=== PATIENT | male | born 1950 | race Caucasian/White ===

== ENCOUNTER 2023-07-12 06:42 | Observation (INO) | payer MEDICARE, SELFPAY ==
[2023-07-12] VITALS (59 sets, daily range): BP systolic 109–188; BP diastolic 64–123; PULSE 63–92; RESP 11–24; TEMP 35.9–36.8; O2SAT 94–99
--- NOTE | 2023-07-12 06:45 | RT.EKG_ITS ---
APPROVED REPORT Exam: Resting ECG Reason for Exam: STROKE Patient Location: E HR:73 bpm ECG Measurements Heart Rate 73 AXIS FL [id number] P [id number] QRSd 113 QRS 49 QT 405 T 85 QTc 446 Conclusion sinus rhythm V-rate 60- 78, limited interp 2/t artifact
--- NOTE | 2023-07-12 07:00 | DI.CT_ITS ---
Exam(s) CT BRAIN NECK CTA EXAM: CT BRAIN NECK CTA CLINICAL HISTORY: R sided weakness. TECHNIQUE: Imaging Protocol: Axial CT angiography was performed with multi-slice acquisition and mu lti-planar and/or 3D reconstructions. CONTRAST MATERIAL: Intravenous: Omnipaque 350 COMPARISON: No exams were available for comparison FINDINGS: CT Head W/O and W: Ventricles and Extra axial spaces: Normal in size and morphology for the patient's age. Hemorrhage: None. Cerebral parenchyma: There are areas of decreased attenuation in the white matter consistent with sma ll vessel ischemic disease. No mass effect or midline shift. Midline shift: None. Brainstem/Cerebellum: Normal. Calvarium: Normal. Visualized Paranasal sinuses/Mastoids: Clear. Soft Tissues: Unremarkable. Enhancement: Unremarkable. CTA Neck W: Common Carotid: Right: No dissection, occlusion or significant stenosis. Left: No dissection, occlusion or significant stenosis. External Carotid: Right: No occlusion or significant stenosis. Left: No occlusion or significant stenosis. Internal Carotid: Right: No dissection, occlusion or significant stenosis. Left: No dissection, occlusion or significant stenosis. Vertebral Artery: Right: No dissection, occlusion or significant stenosis. Left: No dissection, occlusion or significant stenosis. Lung Apices: Normal. Bones: Within normal limits for the patient's age. Soft Tissues: Normal. Thyroid gland: Unremarkable. CTA Brain W: Internal Carotid Arteries: There is atherosclerosis present. No aneurysm or occlusion. There is les s than 50 percent stenosis of the internal carotid arteries bilaterally. Anterior Cerebral Arteries: Right: No aneurysm, occlusion or significant stenosis. Left: No aneurysm, occlusion or significant stenosis. Middle Cerebral Arteries: Right: No aneurysm, occlusion or significant stenosis. Left: No aneurysm, occlusion or significant stenosis. Posterior Cerebral Arteries: Right: No aneurysm, occlusion or significant stenosis. Left: No aneurysm, occlusion or significant stenosis. Vertebral Arteries: Right: No aneurysm or occlusion. There is atherosclerosis causing 50-69 percent stenosis of the dis chasidy V4 segment. Left: No aneurysm or occlusion. There is moderate (50-69 percent) stenosis of the distal V4 segment of the left vertebral artery. Basilar Artery: No aneurysm, occlusion or significant stenosis. IMPRESSION: 1. No large vessel occlusion or aneurysm. 2. 50-69 percent stenosis secondary to atherosclerosis in the distal V4 segments of both the right an d left vertebral arteries. 3. No acute intracranial process. 4. No occlusion or significant stenosis on the CT angiography of the neck. RADIATION DOSE DELIVERED: Total DLP DATA REPOSITORY: All CT scans at this facility are submitted to the National Radiology Data Registry (NRDR) Dose Index Registry (DIR) with the [employer] (ACR). RADIATION OPTIMIZATION: All CT scans at this facility use at least one of these dose optimization te chniques: automated exposure control; mA and/or kV adjustment per patient size (includes targeted exa ms where dose is matched to clinical indication); or iterative reconstruction.
--- NOTE | 2023-07-12 07:00 | DI.RAD_ITS ---
Exam(s) XR CHEST 2V PA LATERAL EXAM: XR CHEST 2V PA LATERAL CLINICAL HISTORY: R sided weakness TECHNIQUE: 2D digital imaging was performed of the chest. Two images were obtained. PA and lateral views were obtained. COMPARISON: No exams were available for comparison FINDINGS: MEDIASTINUM: Normal. HEART: Normal. PULMONARY VASCULATURE: Normal. LUNGS: Clear. PLEURAL SPACE: No pleural effusion or pneumothorax. BONE:Within normal limits for the patient's age. OTHER FINDINGS:Normal. IMPRESSION: No acute pulmonary findings. DATA REPOSITORY: RADIATION DOSE DELIVERED:
--- NOTE | 2023-07-12 07:14 | ED.GENADUL_ITS ---
Discharge Plan Disposition Patient Disposition: Admit to [facility] Discharge Details Clinical Impression: Brain TIA Admit Date/Time: 07/12/23 11:13 Admit Provider: Armando Ramon Attending Provider: Armando Ramon Primary Care Provider: Katarina Angelo V ED Provider: Eielen Berrios Medical Decision Making The patient states that he gives blood every 2 months. His blood pressure used to be 120 but more recently it has been 140/80. [facility]. His initial blood pressure on arrival this morning was 188/107; I asked for this to be repeated and it was 144/97. The patient was en route to CT when he was signed out by codie SHARMA. There was a problem injecting him in radiology and they had to repeat this. He has no history of renal disease. His prostate CA was [address] results still not back. I have already called radiology to make sure this was put through as a stroke protocol and should be read stat. 0850 Radiology called again for results. 0850 Unix Architect Mary [place] [facility] [place] [facility] [place] Stroke neuro to call me back. Pt. got up at 0500 but went to get paper around 0530. 1000 The patient and his have been updated on his test results and treatment plan. I did speak to Dr. Kaye from stroke neurology at [facility] some time ago. The patient has no LVO and no acute stroke evident on CT and CTA. Because his balance was off at 5 AM when he awoke, his symptoms likely began while he was sleeping. He did go to bed at 8 PM last night. He is not a candidate for thrombolytics. At this time the patient is able to lift his right leg much better. This may be a TIA and we discussed this. Stroke neurology recommended echo, MRI, aspirin and usual stroke workup. We are waiting to hear back from [facility] regarding whether the patient could be admitted here, which he prefers. 1039 Stormy, nursing wrecking supervisor from the [facility], says it is fine to admit the patient here. 1100 Pt. sleeping so not updated. Dr. Brownlee reviewed the chart and is admitting the patient to telemetry. Medical Records Medical records reviewed: Yes I reviewed the patient's medical records. Imaging Data Radiologic Study: Imaging: X-Ray (R hip: NAD) and CT Scan (CT and CTA brain: no LVP and no stroke seen. Patient does have moderate 50 to 69% stenosis of the distal V4 segments of his left and right vertebral arteries.) Lab Data Lab results reviewed: Yes I reviewed the patient's lab results. Lab results narrative: Patient CBC, Chem-20, INR, and Trop are essentially unremarkable. Glucose was 112 and chloride 108. ECG Data Attestation: I personally reviewed and interpreted this ECG (s) as follows: (NSR 75, artifact) HPI General Date/Time Provider Initiated Documentation: 07/12/23 06:50 . HPI Narrative: Pt. initially seen by codie SHARMA on arrival before 0700; s/o as awoke with sxs. Interviewed and examined by me on return from CT. This 73-year-old male patient presents with a chief complaint of right lower extremity weakness. Patient states he got up at 5 AM this morning and got dressed. He states he was aware of being off balance at that time. He typically holds onto things when he walks and this was no different. He was able to get his coffee and then proceeded to walk down to the mailbox to get his newspaper. He states about skilled nursing down to the mailbox his right leg gave out and he fell. He said he did catch himself and did not hit his head. He was able to get back up again. This happened again at the mailbox and he was unable to get back up again. He started to crawl on his hands and knees and thought he would flag someone down driving by. His came looking for him because he been gone for a while. She was able to help him up and they then walked back up to the house. Patient has no other focal neurologic deficits. He has no back pain. There is no bowel or bladder dysfunction. He has no chest pain, difficulty breathing, or abdominal pain. He has no fever or URI symptoms. There is no dysuria. He tells me that his groin feels sore. He is able to lift his left lower extremity off the mattress but cannot maintain this. He is unable to hold it up against pressure. There is no numbness. Related Data Home Medications Medication Instructions Recorded Confirmed bisacodyl 5 mg tablet,delayed 5 mg PO DIRECTED 10/07/16 07/12/23 release polyethylene glycol 3350 17 527 gm PO DIRECTED 10/07/16 07/12/23 gram/dose oral powder multivitamin .ROUTE 07/12/23 vitamin D13-hkzen acid PO 07/12/23 Allergies Allergy/AdvReac Type Severity Reaction Status Date / Time No Known Allergies Allergy Unverified 07/12/23 10:07 General Stated Complaint: CVA/TIA LIZETH: 2 Review of Systems Constitutional Constitutional: Denies chills, Denies fever(s), Denies headache(s) and Denies weakness Eyes Eyes: Denies diplopia and Reports other (no redness) ENT Ears, Nose, Mouth, and Throat: Denies otalgia, Denies headache(s), Denies nasal congestion, Denies nasal discharge, Denies neck pain and Denies sore throat Cardiovascular Cardiovascular: Denies chest pain, Denies palpitations and Denies dyspnea Respiratory Respiratory: Denies cough and Denies dyspnea Gastrointestinal Gastrointestinal: Denies abdominal pain, Denies diarrhea, Denies nausea and Denies vomiting Genitourinary Genitourinary: Denies difficulty urinating and Denies dysuria Musculoskeletal Musculoskeletal: Denies myalgias, Reports muscle weakness (RLE), Denies neck pain, Denies numbness and Reports other (edema) Integumentary/Breasts Skin/Breast: Denies change in pigmentation, Denies rash and Reports other (Has knee abrasions from crawling) Neurologic Neurologic: Denies headache(s), Denies numbness and Denies weakness Endocrine Endocrine: Denies palpitations PFSH All Active Problems Brain TIA (Acute) Medical History ganglion 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 Hyperlipidemia Degenerative joint disease of hand right HX OF TUBULAR ADENOMA Surgical History Tonsillectomy Rotator Cuff Repair LEFT Colonoscopy - IV Sedation (10/07/16) Colonoscopy - IV Sedation (02/26/10) Appendectomy Family History Mother Heart disease Father Heart disease Brother , METASTATIC CA Personal history of malignant neoplasm RECTAL Uncle Personal history of malignant neoplasm COLON Uncle Personal history of malignant neoplasm COLON Social History Smoking/Tobacco Use Status: Current-Occasional Tobacco Type: cigars Smoking risk assessment performed?: Yes Drug use: Never Substance use type: does not use Housing: house Exam Const General: no acute distress, well developed, well groomed and not in acute distress Nutritional Appearance: well nourished Orientation: alert and oriented x3 HENMT Head: normocephalic and atraumatic Ears: external ears normal Mouth: oropharynx normal and moist mucous membranes Throat: posterior oropharynx normal Eyes Conjunctivae: conjunctivae normal Neck Neck: full ROM and supple Chest Chest: normal inspection of the chest Resp Effort & Inspection: normal respiratory effort Auscultation: clear to auscultation bilaterally Cardio Rate: regular rate Rhythm: regular rhythm Heart Sounds: no murmurs and no rubs GI Inspection: normal to inspection Palpation: soft, nontender and other (non distended) Auscultation: normal bowel sounds Skin General skin exam: no rashes or lesions noted and other (pink, warm, dry) Neuro General: patient alert, patient awake and patient oriented x3 Speech: speech normal Motor: other (GOMEZ) Sensory Exam: no sensory deficits noted Extrem General: normal to inspection, full ROM and pedal edema present Right upper extremity: normal to inspection and full ROM Left upper extremity: normal to inspection and full ROM Right lower extremity: full ROM (has weakness RLE, unable to hold up >5 sec or vs pressure f/me), normal capillary refill and knee (knee abrasion; NTP) Left lower extremity: full ROM, normal capillary refill and knee (knee abrasion; NTP) Psych Mental Status: mental status grossly normal Speech and Movement: speech and movement normal Affect: normal affect Course Vital Signs Vital signs: Vital Signs Temperature 36.2 C L 07/12/23 06:49 Pulse 76 07/12/23 06:49 Respiratory Rate 16 07/12/23 06:49 Blood Pressure 188/107 H 07/12/23 06:49 Temperature 36.2 C L 07/12/23 06:49 Pulse 76 07/12/23 06:49 Respiratory Rate 16 07/12/23 06:49 Respiratory Effort Normal 07/12/23 06:57 Blood Pressure 188/107 H 07/12/23 06:49 Blood Pressure Position Supine 07/12/23 06:49 Oxygen Delivery Method Room Air 07/12/23 06:49 Oxygen Flow Rate 0 07/12/23 06:49 Pain Level 0 07/12/23 06:49
[2023-07-12 07:25] LABS: Abs Immature Grans 0.01 10^3/uL (0.0-0.06); Absolute Basophil Count 0.04 10^3/uL (0.0-0.2); Absolute Eosinophil Count 0.08 10^3/uL (0.0-0.7); Absolute Monocyte Count 0.57 10^3/uL (0.1-0.8); Absolute Neutrophil Count 2.89 10^3/uL (1.2-6.7); Basophils % 0.9; Eosinophils % 1.7; HGB 14.7 g/dL (13.5-17.5); Immature Grans % 0.2; Lymphocytes % 23.5; MCH 29.6 pg (27.0-33.0); MCHC 32.7 % (32.0-36.0); MCV 91 fL (80-95); Monocytes % 12.2; Neutrophils % 61.5; Platelet Count 187 10^3/uL (130-400); RBC 4.97 10^6/uL (4.36-5.78); RDW 13.2 % (11.8-14.1); RDW-SD 43.9 fL; WBC 4.69 10^3/uL (4.4-10.8)
[2023-07-12 07:34] LABS: Prothrombin Time 10.1 sec (9.1-11.1)
[2023-07-12 07:46] LABS: ALT 18 U/L (16-63); AST 18 U/L (15-37); Albumin 3.5 g/dL (3.4-5.0); Alkaline Phosphatase 65 U/L (46-116); Anion Gap 5.4 mmol/L (3-11); BUN 16 mg/dL (7-18); Bilirubin, Total 0.5 mg/dL (0.2-1.0); CO2 27.6 mmol/L (21.0-32.0); Calcium 8.6 mg/dL (8.5-10.1); Chloride 108 mmol/L (98-107); Estimated GFR 78.49 (mL/min/1.73m2); Glucose 112 mg/dL (74-106); Magnesium 1.9 mg/dL (1.8-2.4); Sodium 141 mmol/L (136-145); Total Protein 7.3 g/dL (6.4-8.2); Troponin I < 50 ng/L (<or=60)
[2023-07-12] MEDS: Normal Saline 1,000 ML 1000 ML IV (07:50)
[2023-07-12] MEDS: Omnipaque 350 MG/ML 100 ML BTL 160 ML IJ (07:54)
--- NOTE | 2023-07-12 08:00 | DI.RAD_ITS ---
Exam(s) XR HIP RT COMPLETE AP PELVIS EXAM: XR HIP RT COMPLETE AP PELVIS CLINICAL HISTORY: pain post fall. TECHNIQUE: 2D digital imaging was performed of the right hip. Three images were obtained. AP pelvis and lateral right hip views were obtained. COMPARISON: No exams were available for comparison FINDINGS: BONES: No acute fracture is present. No bony destructive lesion is seen. JOINTS: No dislocation present. SOFT TISSUE: Normal. There is contrast seen in the urinary bladder from the patient's CT scan perform ed the same day. IMPRESSION: No acute fracture or dislocation. DATA REPOSITORY: RADIATION DOSE DELIVERED:
--- NOTE | 2023-07-12 08:06 | NUR.NOTE ---
During DI malfunction with CT timing after contrast was pushed and the imaging performed. Imaging ran to fast and contrast didn't hit destination yet. ER physician contacted and authorized another imaging to be performed with contrast. VG Nursing Note:
--- NOTE | 2023-07-12 09:12 | DI.VRAD_ITS ---
PROCEDURE INFORMATION: Exam: CTA Head With Contrast, Arteriography Exam date and time: 07/12/2023 7:31 AM Age: 73 years old Clinical indication: Stroke-like symptoms; Right lower extremity numbness/paresthesia TECHNIQUE: Imaging protocol: Computed tomographic angiography of the head with contrast. Exam focused on the arteries. 3D rendering (Not supervised by radiologist): MIP and/or 3D reconstructed images were created by the technologist. COMPARISON: No relevant prior studies available. FINDINGS: ANTERIOR CIRCULATION: Right internal carotid artery: Mild, less than 50% diameter stenosis of the right internal carotid artery siphon segment, secondary to calcific plaque disease. Right middle cerebral artery: No occlusion or significant stenosis. No aneurysm. Right anterior cerebral artery: No occlusion or significant stenosis. No aneurysm. Left internal carotid artery: Mild, less than 50% diameter stenosis of the left internal carotid artery siphon segment, secondary to calcific plaque disease. Left middle cerebral artery: No occlusion or significant stenosis. No aneurysm. Left anterior cerebral artery: No occlusion or significant stenosis. No aneurysm. POSTERIOR CIRCULATION: Right vertebral artery: Moderate, 50-69% diameter stenosis of the distal V4 segment of the right vertebral artery, secondary to calcific plaque disease. No dissection or occlusion. Left vertebral artery: Moderate, 50-69% diameter stenosis of the distal V4 segment of the left vertebral artery, secondary to calcific plaque disease. No dissection or occlusion. Basilar artery: No occlusion or significant stenosis. No aneurysm. Right posterior cerebral artery: No occlusion or significant stenosis. No aneurysm. Left posterior cerebral artery: No occlusion or significant stenosis. No aneurysm. Brain: No definite mass, mass effect, or midline shift. Cerebral ventricles: No ventriculomegaly. Bones/joints: Unremarkable. No acute fracture. Soft tissues: Unremarkable. IMPRESSION: 1. No acute findings. The CT angiogram of the brain shows no large vessel occlusion identified. 2. Mild, less than 50% diameter stenosis of the bilateral internal carotid artery siphon segments, secondary to calcific plaque disease. 3. Moderate, 50-69% diameter stenosis of the distal V4 segments of the left and right vertebral arteries, secondary to calcific plaque disease. No dissection or occlusions. PROCEDURE INFORMATION: Exam: CTA Neck With Contrast Exam date and time: 07/12/2023 7:31 AM Age: 73 years old Clinical indication: Stroke-like symptoms; Right lower extremity numbness/paresthesia TECHNIQUE: Imaging protocol: Computed tomographic angiography of the neck with contrast. Exam focused on the cervical segments of the vasculature. 3D rendering (Not supervised by radiologist): MIP and/or 3D reconstructed images were created by the technologist. COMPARISON: No relevant prior studies available. FINDINGS: The great vessels in the upper mediastinum and the proximal subclavian arteries bilaterally are normal. Right common carotid artery: No stenosis. No dissection or occlusion. Right internal carotid artery: No stenosis of the extracranial segment. No dissection or occlusion. Right external carotid artery: No occlusion or stenosis of the origin. Left common carotid artery: No stenosis. No dissection or occlusion. Left internal carotid artery: Mild, less than 50% diameter stenosis of the proximal left internal carotid artery. No dissection or occlusion. Left external carotid artery: No occlusion or stenosis of the origin. Right vertebral artery: Moderate, 50-69% diameter stenosis of the distal V4 segment of the right vertebral artery, secondary to calcific plaque disease. No dissection or occlusion. Left vertebral artery: Moderate, 50-69% diameter stenosis of the distal V4 segment of the left vertebral artery, secondary to calcific plaque disease. No dissection or occlusion. Soft tissues: Normal. No significant soft tissue swelling. Bones/joints: No acute fracture. IMPRESSION: 1. Mild, less than 50% diameter stenosis of the proximal left internal carotid artery. No dissection or occlusion. 2. Moderate, 50-69% diameter stenosis of the distal V4 segment of the right vertebral artery, secondary to calcific plaque disease. No dissection or occlusion. 3. Moderate, 50-69% diameter stenosis of the distal V4 segment of the left vertebral artery, secondary to calcific plaque disease. No dissection or occlusion. REFERENCES: NASCET CRITERIA. The degree of stenosis in the cervical segment of the internal carotid artery is based on NASCET criteria. Normal is no stenosis. Mild is less than 50% stenosis. Moderate is 50-69% stenosis. Severe is 70% to 99% stenosis. Total occlusion is no detectable patent lumen. Dictated and Authenticated by: Jake Belle MD. Ordering:LATONYA Arellano MD
[2023-07-12] MEDS: Normal Saline 1,000 ML 125 ML IV (09:27)
--- NOTE | 2023-07-12 09:28 | DI.VRAD_ITS ---
PROCEDURE INFORMATION: Exam: XR Chest Exam date and time: 07/12/2023 9:09 AM Age: 73 years old Clinical indication: Other: R sided weakness TECHNIQUE: Imaging protocol: Radiologic exam of the chest. Views: 2 views. COMPARISON: CT BRAIN NECK CTA 07/12/2023 7:31 AM FINDINGS: Lungs: Unremarkable. No consolidation. Pleural spaces: Unremarkable. No pleural effusion. No pneumothorax. Heart/Mediastinum: Unremarkable. No cardiomegaly. Bones/joints: Unremarkable. IMPRESSION: No acute findings. Dictated and Authenticated by: Jake Belle MD. Ordering:LATONYA Arellano MD
--- NOTE | 2023-07-12 09:47 | DI.VRAD_ITS ---
PROCEDURE INFORMATION: Exam: XR Right Hip Exam date and time: 07/12/2023 9:00 AM Age: 73 years old Clinical indication: Injury or trauma; Other: Pain S/P fall TECHNIQUE: Imaging protocol: Radiologic exam of the right hip. Views: 2 or 3 views hip with pelvis when performed. COMPARISON: No relevant prior studies available. FINDINGS: Bones/joints: Unremarkable. No acute fracture. Soft tissues: Unremarkable. IMPRESSION: No acute findings. Dictated and Authenticated by: Jake Belle MD. Ordering:LATONYA Arellano MD
[2023-07-12] MEDS: Aspirin 81 MG CHEW 324 MG PO (09:55)
--- NOTE | 2023-07-12 12:01 | NUR.NOTE ---
Stormy, Nursing Funder called back from [place] stating that pt can stay at [facility]. Nursing Note:
[2023-07-12] MEDS: Normal Saline Flush 10 ML SYR IVP (13:09)
[2023-07-12] MEDS: Clopidogrel 300 MG TAB PO (13:09)
[2023-07-12] MEDS: Enoxaparin 40 MG/0.4 ML SYR SC (16:19)
--- NOTE | 2023-07-12 17:52 | HPE_ITS ---
Date of service: 07/12/23 Time of Service: 13:00 Assessment and Plan Assessment and plan (1) Brain TIA: Status: Acute Assessment and plan: Neuro consultation Head CT no bleeding, no acute changes Neck CTA no stenosis, dissection or occulsion Brain CTA right and left vertebral artery with atherosclerosis causing 50-69 percent stenosis of the distal V4 segment. Plavix loaded the Plavix 75 mg oral daily ASA 81 mg PO daily Atorvastatin 80 mg PO daily Telemetry MRI on friday Echocardigram with bubble study on Friday BMP ,CBC, A1C, lipid panel in am (2) On deep vein thrombosis (DVT) prophylaxis: Status: Acute Assessment and plan: On LMWH (3) Discharge planning issues: Status: Acute Assessment and plan: No need on discharge CM will f/u if need arises History of Present Illness History of Present Illness Chief Complaint: Right lower extremity weakness N arrative: This 73 years old male [facility] patient with PMH of ruptured appendicitis,prostate carcinoma w treatment in 2009, rotator cuff injury and repair presented today in the ED at [facility] by private vehicle with spouse for evaluation of right lower extremity weakness and fall. The patient reported waking up at 5 AM and feeling transient lightheadedness, dressing up, making coffee and getting out to get his mail at the end of his driveway and feeling his right leg giving up. At the time the patient also mentioned feeling numbness to the right side of his face but he was not lightheaded anymore. The patient reported being unable to get up. The spouse went out looking for him and helped him back up and back to the house. In the ED, the patient reported groin pain, right lower extremity weakness. Head CT showed only small vessel ischemic disease; neck CTA was unremarkable, The brain CTA only mentioned right vertebral artery with atherosclerosis causing 50- 69 percent stenosis of the distal V4 segment, and left vertebral artery with moderate (50-69 percent) stenosis of the distal V4 segment.No acute findings found on right hip and chest X-rays. Laboratory studies were unremarkable. [facility] [place] Stroke neuro consulted by ED provider and mentioned that there was no acute stroke evident on CT and CTA; additonally d/t time frame,, the patient was not a candidate for thrombolytics. The patient was able to lift his leg easier in the ED. Neurology recommended echo, MRI, aspirin and usual stroke workup.The hospitalist was called and the patient was accepted to the medical surgical floor as an observation patient on telemetry. On the Floor the patient reported that the weakness to his right lower extremity had resolved w/o residual numbness, the patient also denies, headache, change in vision, nausea, vomiting, shortness of breath, chest pain, abdominal pain, dysuria, fevers. . Review of Systems All systems reviewed & are unremarkable except as noted in HPI and below Constitutional Constitutional: Reports system reviewed and no additional complaints, except as documented Eyes Eyes: Denies blind spots, Denies blurry vision, Denies change in vision, Denies diplopia and Denies loss of vision ENT Ears, Nose, Mouth, and Throat: Reports system reviewed and no additional complaints, except as documented, Denies dysphagia, Denies vertigo, Denies dizziness, Denies odynophagia and Denies disequilibrium Cardiovascular Cardiovascular: Denies irregular heart rhythm, Denies palpitations, Denies dyspnea and Denies orthopnea Respiratory Respiratory: Denies pain on inspiration, Denies pain with cough and Denies dyspnea Gastrointestinal Gastrointestinal: Denies abdominal pain, Denies dysphagia and Denies odynophagia Genitourinary Genitourinary: Denies hematuria and Reports difficulty urinating Musculoskeletal Musculoskeletal: Denies abnormal gait, Denies muscle weakness and Denies numbness Integumentary/Breasts Skin/Breast: Reports system reviewed and no additional complaints, except as documented Neurologic Neurologic: Denies abnormal speech, Denies abnormal gait, Denies burning sensations, Denies vertigo, Denies dizziness, Denies lack of coordination, Denies localized weakness, Denies loss of vision, Denies numbness, Denies other visual disturbances and Denies disequilibrium Psychiatric Psychiatric: Reports system reviewed and no additional complaints, except as documented Endocrine Endocrine: Denies palpitations Hematologic/Lymphatic Hematologic/Lymphatic: Reports system reviewed and no additional complaints, except as documented PFSH All Active Problems (Updated 07/12/23 @ 19:11 by Giselle Haile APRN) On deep vein thrombosis (DVT) prophylaxis (Acute) Discharge planning issues (Acute) Brain TIA (Acute) Medical History ganglion 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 Hyperlipidemia Degenerative joint disease of hand right HX OF TUBULAR ADENOMA Surgical History Tonsillectomy Rotator Cuff Repair LEFT Colonoscopy - IV Sedation (10/07/16) Colonoscopy - IV Sedation (02/26/10) Appendectomy Family History Mother Heart disease Father Heart disease Brother , METASTATIC [place] Personal history of malignant neoplasm RECTAL Uncle Personal history of malignant neoplasm COLON Uncle Personal history of malignant neoplasm COLON Social History Smoking/Tobacco Use Status: Current-Occasional Tobacco Type: cigars Smoking risk assessment performed?: Yes Drug use: Never Substance use type: does not use Housing: house Meds Allergies and Home Medications Allergies Allergy/AdvReac Type Severity Reaction Status Date / Time No Known Allergies Allergy Unverified 07/12/23 10:07 Home Medications Medication Instructions Recorded Confirmed Type bisacodyl 5 mg tablet,delayed 5 mg PO DIRECTED 10/07/16 07/12/23 History release polyethylene glycol 3350 17 527 gm PO DIRECTED 10/07/16 07/12/23 History gram/dose oral powder multivitamin .ROUTE 07/12/23 History vitamin H44-cneol acid PO 07/12/23 History Exam Narrative Exam Narrative: Patient is in bed, alert and oriented x 3, no sign of acute distress, no focal neuro deficits, cranial nerves are intact, PERRLA at 2-3, head is atraumatic, normocephalic. Neck is supple without lymphadenopathy, no neck rigidity. Chest is symmetrical, clear breath sounds throughout lung hope. Telemetry is in the sinus rhythm heart rate in the 80s, S1-S2 heard, no cardiac murmur capillary refill is within normal limits no swelling noticed to extremities,Abdomen is soft non-tender, non-distended. No CVA tenderness. Results Labs 07/12/23 06:59 07/12/23 06:59 Labs: Laboratory Results - last 24 hr 07/12/23 07/12/23 06:59 10:08 WBC 4.69 RBC 4.97 Hgb 14.7 Hct 45.0 MCV 91 MCH 29.6 MCHC 32.7 RDW 13.2 Plt Count 187 MPV 9.0 Immature Gran % 0.2 Neutrophils % 61.5 Lymphocytes % 23.5 Monocytes % 12.2 Eosinophils % 1.7 Basophils % 0.9 Nucleated RBC % 0.0 Absolute Neutrophils 2.89 Absolute Lymphocytes 1.10 L Absolute Monocytes 0.57 Absolute Eosinophils 0.08 Absolute Basophils 0.04 PT 10.1 INR 1.0 Sodium 141 Potassium 4.0 Chloride 108 H Carbon Dioxide 27.6 Anion Gap 5.4 BUN 16 Creatinine 1.0 Est GFR (CKD-EPI 2020) 78.49 Glucose 112 H Calcium 8.6 Magnesium 1.9 Total Bilirubin 0.5 AST 18 ALT 18 Alkaline Phosphatase 65 Troponin I < 50 Cancelled Total Protein 7.3 Albumin 3.5 Last Vital Signs Temp 36.5 C 07/12/23 16:03 Pulse 65 07/12/23 16:03 Resp 18 07/12/23 16:03 BP 139/79 07/12/23 16:03 Pulse Ox 95 07/12/23 16:03 PAWSS Pt Consumed Any Amount of Alcohol Within the Last 30 days OR had positive MINA Upon Admission: Yes Time Spent Time spent with Patient: >75 minutes Time was spent: preparing to see the patient(eg.review tests), obtaining and/or reviewing separately otained hiistory, ordering medications,tests, procedures, referring, communicating with other health hospice care transitions coordinator, indepentently interpreting results, counseling the patient and care coordination
[2023-07-12] MEDS: Atorvastatin 40 MG TAB 80 MG PO (19:58)
[2023-07-13 03:49] VITALS: BP 99/61; PULSE 67; RESP 18; TEMP 36.3; O2SAT 95
[2023-07-13 06:54] LABS: Abs Immature Grans 0.01 10^3/uL (0.0-0.06); Absolute Basophil Count 0.03 10^3/uL (0.0-0.2); Absolute Eosinophil Count 0.08 10^3/uL (0.0-0.7); Absolute Lymphocyte Count 1.04 10^3/uL (1.2-3.4); Absolute Neutrophil Count 2.41 10^3/uL (1.2-6.7); Basophils % 0.7; HCT 39.5 % (40.0-50.0); HGB 13.7 g/dL (13.5-17.5); Immature Grans % 0.2; Lymphocytes % 25.6; MCH 30.6 pg (27.0-33.0); MCHC 34.7 % (32.0-36.0); MCV 88 fL (80-95); MPV 9.3 fL (8.0-11.0); Monocytes % 12.3; Neutrophils % 59.2; Platelet Count 161 10^3/uL (130-400); RBC 4.47 10^6/uL (4.36-5.78); RDW 13.2 % (11.8-14.1); WBC 4.07 10^3/uL (4.4-10.8)
[2023-07-13 07:11] LABS: Anion Gap 1.5 mmol/L (3-11); BUN 11 mg/dL (7-18); CO2 26.5 mmol/L (21.0-32.0); CREATININE 0.9 mg/dL (0.70-1.30); Calcium 8.5 mg/dL (8.5-10.1); Chloride 105 mmol/L (98-107); Estimated GFR 89.07 (mL/min/1.73m2); Glucose 105 mg/dL (74-106); Magnesium 1.9 mg/dL (1.8-2.4); Potassium 3.3 mmol/L (3.5-5.1); Sodium 133 mmol/L (136-145)
[2023-07-13 07:17] LABS: Calculated LDL 106 mg/dL (<100); Cholesterol 161 mg/dL (<200); HDL Cholesterol 39 mg/dL (40-60); Triglyceride 82 mg/dL (<150)
[2023-07-13 07:20] LABS: Hemoglobin A1C 5.5 % (<5.7)
[2023-07-13 07:23] VITALS: BP 134/78; PULSE 70; RESP 18; TEMP 36.4; O2SAT 95
[2023-07-13] MEDS: Aspirin E.C. 81 MG TABEC PO (09:43)
[2023-07-13] MEDS: Multivitamin TAB 1 TAB PO (09:43)
[2023-07-13] MEDS: Clopidogrel 75 MG TAB PO (09:43)
--- NOTE | 2023-07-13 10:49 | PGE_ITS ---
Date of Service Date of service: 07/13/23 Time of Service: 10:49 Assessment and Plan Assessment and plan (1) Brain TIA: Status: Acute Assessment and plan: symptoms resolved and at baseline, will advance diet to regular [facility] [place] Neuro was consulted in the ED, no transfer recommends; routine stroke work up here. studies completed: Head CT no bleeding, no acute changes Neck CTA no stenosis, dissection or occlusion Brain CTA right and left vertebral artery with atherosclerosis causing 50-69 percent stenosis of the distal V4 segment. Plavix loaded and continue Plavix 75 mg oral daily ASA 81 mg PO daily Atorvastatin 80 mg PO daily Telemetry PT/OT consultations placed pending: MRI and Echocardigram with bubble study on Friday A1C 5.5, lipid panel chol 161, ldl 106, hdl 39 trig 82 (2) On deep vein thrombosis (DVT) prophylaxis: Status: Acute Assessment and plan: On LMWH (3) Discharge planning issues: Status: Acute Assessment and plan: CM following no services anticipated at discharge. discussed with DR Ramon Subjective Subjective Patient reports: no new complaints, feels better, tolerating liquids well, tolerating a regular diet, voiding w/o difficulty and afebrile; denies shortness of breath Interval history since last seen: Reports his symptoms have completely resolved and he feels back at baseline. No headaches or visual disturbance no further right-sided weakness. He is tolerating a regular diet so will be advanced Exam Narrative Exam Narrative: Well-appearing male of stated age in no acute distress Head is atraumatic normocephalic eyes normal alignment EOMs intact no nystagmus facial symmetry with no facial droop noted Neuro awake alert oriented x 4 cranial nerves II through XII grossly intact able to perform [id number] bilaterally equal strength bilaterally 5 out of 5 Cardiovascular regular rate and rhythm Respiratory respirations even and unlabored breath sounds clear bilaterally Abdomen is soft nontender with positive bowel sounds Extremities are without edema moves all extremities strength 5 out of 5 Skin with no rashes or lesions Psychiatric normal mood and affect Objective Last Vital Signs Temp 36.4 C L 07/13/23 07:23 Pulse 70 07/13/23 07:23 Resp 18 07/13/23 07:23 BP 134/78 07/13/23 07:23 Pulse Ox 95 07/13/23 07:23 Laboratory Results - last 24 hr 07/13/23 06:16 WBC 4.07 L RBC 4.47 Hgb 13.7 Hct 39.5 L MCV 88 MCH 30.6 MCHC 34.7 RDW 13.2 Plt Count 161 MPV 9.3 Immature Gran % 0.2 Neutrophils % 59.2 Lymphocytes % 25.6 Monocytes % 12.3 Eosinophils % 2.0 Basophils % 0.7 Nucleated RBC % 0.0 Absolute Neutrophils 2.41 Absolute Lymphocytes 1.04 L Absolute Monocytes 0.50 Absolute Eosinophils 0.08 Absolute Basophils 0.03 Sodium 133 L Potassium 3.3 L Chloride 105 Carbon Dioxide 26.5 Anion Gap 1.5 L BUN 11 Creatinine 0.9 Est GFR (CKD-EPI 2020) 89.07 Glucose 105 Hemoglobin A1c 5.5 Calcium 8.5 Magnesium 1.9 Triglycerides 82 Total Cholesterol 161 LDL Cholesterol, Calc 106 H HDL Cholesterol 39 L PAWSS Pt Consumed Any Amount of Alcohol Within the Last 30 days OR had positive MINA Upon Admission: Yes Time Spent with Patient Time Spent with Patient: 25-34 minutes Time was spent: preparing to see the patient(eg.review tests), [facility] and/or [facility], ordering medications,tests, procedures, indepentently interpreting results and counseling the patient
[2023-07-13 11:02] VITALS: BP 145/81; PULSE 73; RESP 18; TEMP 36.9; O2SAT 96
--- NOTE | 2023-07-13 12:19 | PT.INIE ---
Date of service: 07/13/23 Time of Service: 12:40 PT Notes Visit Reasons: TIA (cardiology) Date: 07/13/23 Referring Doctor: Shabnam Dueñas PT Orders: PT CONSULT: Non-urgent Precautions: Standard Patient Profile/Admitting Diagnosis: 73 y o male who awoke with R LE weakness and numbness, experienced fall when getting his mail and had to help him up, he had some facial numbness 07/12/23, presented to [facility] ER for evaluation. No acute stroke noted on CT, but given mary beth from incident and symptoms admitted for observation. His weakness has resolved once transfering to med/surg floor, for further medical work up and testing and MRI. He is [facility] patient with PMH of ruptured appendicitis,prostate carcinoma w treatment in 2009, rotator cuff injury and repair Social History/Home Situation: Lives with in a private home Equipment Owned/DME: None Subjective: Reports he is moving about as he normally would, no longer feeling weakness or numbness, no pain. He generally has not fall history until this event. He is here until tomorrow awaiting MRI Objective: General Observation: Sitting EOB independently finishing lunch. No lines. Moves about the room with confidence Mental Status: A & O x 3 ROM: Right Upper Extremity: WNL Left Upper Extremity: WNL Right Lower Extremity: WNL Left Lower Extremity:WNL Strength: Right Upper Extremity: WNL Left Upper Extremity: WNL Right Lower Extremity: WNL Left Lower Extremity: WNL Bed Mobility/Transfers: Independent with all bed mobility, transfers Gait: Independent, no AD Balance: Static Sitting: Good Dynamic Sitting: Good Static Standing: Good Dynamic Standing: Good Espinoza:52/56 - no fall risk Special Tests: Mobility Limitations Standardized Measure [facility] AM-PAC 6 clicks Basic Mobility Inpatient Short Form: 0% disability LE screen: Negative, DTR unabe to elicit aron LE, myotomes and dermatomes WNL, negative babinski Informed Consent/Education: Patient instructed in purpose of PT consult and plan of care. Treatment: Initial evaluation 64901 Assessment: Patient is a 73 year old male referred to physical therapy services with reason for PT evaluation of mobility on non urgent status,and admitted diagnosis of brain TIA. Patient presents with independent level of mobility, with no impairment level findings. Initial TIA symtpoms seemed to have resolved. He is safe for return home when medically cleared. He does not require PT service given independent level of function. Patient is assessed as low complexity based on the following: History: 73 y o male with resolved R LE weakness and numbness, now with good balance, suspect for TIA. He is [facility] patient with PMH of ruptured appendicitis,prostate carcinoma w treatment in 2009, rotator cuff injury and repair Examination: none Presentation: stable Decision Making: easy Plan of Care/Treatment Plan: Discharge home when medically stable. Discharged from PT service. TREATMENT CODE/TIME: Direct treatment time [id number] 15min Total treatment time 15min Units Time 64504 1 Manual therapy (20500) [] []min Therapeutic Procedures (32633) [] []min Neurological Reeducation (52569) [] []min Therapeutic Activity (47945) [] []min [] [] []min [] [] []min Raina Mcnamara, MPT [facility]
[2023-07-13] MEDS: Normal Saline Flush 10 ML SYR IVP (14:19)
[2023-07-13 14:50] VITALS: BP 144/75; PULSE 80; RESP 18; TEMP 36.6; O2SAT 95
[2023-07-13] MEDS: Enoxaparin 40 MG/0.4 ML SYR SC (16:21)
--- NOTE | 2023-07-13 16:28 | INITIAL_ITS ---
Date of service: 07/13/23 Time of Service: 16:28 Care Management Initial Assmt Initial Assessment REASON FOR HOSPITALIZATION:: TIA PREVIOUS FUNCTIONAL STATUS/SOCIAL/FAMILY SUPPORTS:: Feng lives in [place], [place] with his , Karol. He is independent at baseline. CURRENT FUNCTIONAL STATUS:: Feng was sitting up on the edge of his bed visiting with his and grandson when CM met with him. He stated that he feels fine, and is looking forward to returning home. He hopes that he will be able to discharge early in the day tomorrow. Per report, he is scheduled for an echo and MRI tomorrow, and will likely return home after. CM will continue to follow. ADVANCE DIRECTIVES:: Not on file at [facility]. Has patient been provided with info about the portal/API?: Yes Did the patient sign up for the portal?: No CODE STATUS:: Full Code INSURANCE COVERAGE / FINANCIAL ISSUES:: [facility] MCR replacement CURRENT HOME/COMMUNITY SERVICES/EQUIPMENT:: None. PRIMARY CARE PHYSICIAN:: Katarina Angelo POTENTIAL DISCHARGE NEEDS:: Evaluations for further needs, follow up appointments. PATIENT/FAMILY EDUCATION NEEDS:: Review discharge instructions and limitations, discussion of self care needs including ask me three. ANTICIPATED BARRIERS TO DISCHARGE:: None. TRANSPORTATION:: Via private vehicle by his . PLAN:: Anticipate Feng will return home once medically cleared. His will drive him home via private vehicle. He will follow up with his PCP and discharge plan of care. CM will continue to follow. PFSH All Active Problems (Updated 07/12/23 @ 19:11 by Giselle Haile APRN) On deep vein thrombosis (DVT) prophylaxis (Acute) Discharge planning issues (Acute) Brain TIA (Acute) Medical History ganglion 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 Hyperlipidemia Degenerative joint disease of hand right HX OF TUBULAR ADENOMA Surgical History Tonsillectomy Rotator Cuff Repair LEFT Colonoscopy - IV Sedation (10/07/16) Colonoscopy - IV Sedation (02/26/10) Appendectomy Family History Mother Heart disease Father Heart disease Brother , METASTATIC [place] Personal history of malignant neoplasm RECTAL Uncle Personal history of malignant neoplasm COLON Uncle Personal history of malignant neoplasm COLON Social History Smoking/Tobacco Use Status: Current-Occasional Tobacco Type: cigars Smoking risk assessment performed?: Yes Drug use: Never Substance use type: does not use Housing: house
[2023-07-13] MEDS: Atorvastatin 40 MG TAB 80 MG PO (21:14)
[2023-07-14] MEDS: Multivitamin TAB 1 TAB PO (07:58)
[2023-07-14] MEDS: Clopidogrel 75 MG TAB PO (07:58)
[2023-07-14] MEDS: Aspirin E.C. 81 MG TABEC PO (07:58)
--- NOTE | 2023-07-14 08:00 | DI.MRI_ITS ---
Exam(s) MR BRAIN WO EXAM: MR BRAIN WO CLINICAL HISTORY: TIA TECHNIQUE: Multiplanar multisequence MRI of the brain was performed. COMPARISON: CT CT BRAIN NECK CTA from 07/12/2023 FINDINGS: VENTRICLES AND EXTRA AXIAL SPACES: Normal in size and morphology for the patient's age. MIDLINE SHIFT: None. CEREBRAL PARENCHYMA: There is restricted diffusion seen in the region of the posterior aspect of the left lentiform nucleus, the posterior limb of the internal capsule and the left patiño radiata. Ther e may also be a small focus of restricted diffusion in the high left parietal lobe. No space-occupyi ng lesion identified. There are multiple foci of increased signal on the FLAIR and T2 weighted images consistent with small vessel ischemic disease. HEMORRHAGE: None. BRAINSTEM/CEREBELLUM: Normal. CALVARIUM: Normal. VISUALIZED PARANASAL SINUSES/MASTOIDS:Clear. [place]: Normal flow void. PITUITARY GLAND: Unremarkable. OTHER FINDINGS: None. IMPRESSION: 1. Acute infarct involving portions of the left lentiform nucleus, the posterior limb of the internal capsule on the left and the left patiño radiata. 2. Multiple foci of increased signal in the white matter consistent with chronic microvascular ischem ic disease. DATA REPOSITORY:
--- NOTE | 2023-07-14 08:00 | DI.US_ITS ---
APPROVED REPORT EXAM: Comprehensive 2D, Doppler, and color-flow Echocardiogram Patient Location: In-Patient Room/Bed: [facility] Deck Tender: Niecy De Leon RDCS (AE) Indications: TIA Echo Enhancing Agent Indication: Rule out Shunt Agent(s) / Amount(s) Used: Agitated Saline 40.0 cc Comments: Contrast study was performed with 2 IV injections of 10ccs of agitated normal saline, at re st and with cough. Other Information Study Quality: Fair. Technically limited study due to body habitus, patient unable to stay LLD . Conclusion Normal left ventricular wall thickness and chamber size. Ejection fraction is 50 to 55%. There are no segmental wall motion abnormalities. There is stage I diastolic dysfunction which is normal for a ge Normal right ventricular size and systolic function Both atria are normal in size No structural or hemodynamically significant valvular disease No intracardiac shunting was identified with injection of agitated saline Mildly dilated ascending aorta Wall motion Left Ventricle The left ventricle is normal size. The left ventricular systolic function is normal. The left ventric ular ejection fraction is within the normal range. There is normal left ventricular wall thickness. T here is normal LV segmental wall motion. There is no ventricular septal defect visualized. LVEF is 50 -55% Right Ventricle Right ventricle is grossly normal in size. Right ventricular systolic function could not be assessed. Atria The left atrium size is normal. The right atrium size is normal. The interatrial septum is intact wit h no evidence for an atrial septal defect. Aortic Valve The aortic valve is normal in structure. Aortic valve is trileaflet. There is no aortic valvular sten osis. No aortic regurgitation is present. Mitral Valve The mitral valve is normal in structure. No evidence of mitral valve stenosis. Trace mitral regurgita tion. Tricuspid Valve The tricuspid valve is normal in structure. There is no tricuspid valve stenosis. Trace tricuspid reg urgitation. Unable to assess PA pressure. Pulmonic Valve The pulmonary valve is normal in structure. There is no pulmonic valvular stenosis. There is no pulmo won valvular regurgitation. Great Vessels The aortic root is normal in size. The ascending aorta is mildly dilated. Aortic arch is normal in ca liber. IVC is normal in size and collapses >50% with inspiration. Pericardium There is no pericardial effusion. 2D Dimensions IVSD d PLAX 0.93 cm M: 0.6-1.2 Ao Root d 3.53 cm M: 3.1 - 3.7 LVPW d PLAX 0.90 cm M: 0.6 - 1.2 Ao Asc Diam d 3.63 cm M: 2.6 - 3.4 LVID d PLAX 4.85 cm M: 4.2 - 5.8 LVDs 3.73 cm M: 2.5 - 4.0 LV EF Teichholz 46.1 % FS 23.03 % LV EDV (Teich) 110.2 mL LV ESV (Teich) 59.4 mL M-Mode TAPSE 1.93 cm (M/F) >1.7 Auto EF LV EDV A4C 95.8 mL LV EDV A2C 96.8 mL LV EDV BP LV ESV A4C 52.5 mL LV ESV A2C 49.3 mL LV ESV BP LVEF(%) A4C 45.2 % LVEF(%) A2C 49.1 % LVEF(%) BP LV SV A4C 43.3 ml LV SV A2C 47.5 ml LV SV BP LV CO A4C 3.3 L/min LV CO A2C 3.5 L/min LV CO BP HR A4C 75.96 BPM HR A2C 73.77 BPM LV EDV Index (BP) LA Volume LA Length A4C 3.0 cm LA Length A2C 4.5 cm LA Area A4C s 7.69 cm2 LA Area A2C s 11.88 cm2 LA Vol A4C A-L 16.84 mL LA Vol A2C A-L 26.82 mL LA Vol Biplane A-L 26.0 mL LA Vol/BSA A4C A-L LA Vol/BSA A2C A-L LA Vol/BSA BP A-L 14.4 mL/m2 LA Vol A4C MOD 15.7 mL LA Vol A2C MOD 24.2 mL LA Vol BP MOD 23.7 mL LV Diastology MV E Vmax 0.49 (0.4-1.3 m/s) MV A Vmax 0.65 (0.4-1.3 m/s) E/A Ratio 0.8 Aortic Valve AoV Vmax 0.90 m/s LVOT Vmax 0.68 m/s AoV Peak Grad 3.2 mmHg LVOT Peak Grad 1.8 mmHg AoV Area (Vmax) 2.56 cm2 LVOT VTI 0.114 m AoV VTI 0.171 m LVOT Mean Grad 0.9 mmHg AoV Mean Sabas. 0.65 m/s LVOT SV 38.40 mL AoV Mean Grad 1.9 mmHg LVOT Diam s 2.05 cm AoV Area (VTI) 2.24 cm2 Velocity Ratio 0.76 Mitral Valve MV DT 339 (160-240 msec) MV Vmax TIPS 0.70 m/s MV Mean Grad 0.6 (<2mmHg) MV VTI 0.149 m Pulmonary Valve PV Vmax 1.03 (0.5-1.5 m/s) RVOT Vmax 0.62 m/s PV Peak Grad 4.2 mmHg RVOT Peak Gr. 1.5 mmHg PV Mean Sabas 0.81 m/s RVOT VTI 0.130 m PV Mean Grad 2.8 mmHg RVOT Mean Gr. 0.9 mmHg Tricuspid Valve RA Pressure 3.00 mmHg
[2023-07-14 08:19] VITALS: BP 163/83; PULSE 66; RESP 16; TEMP 36.5; O2SAT 95
--- NOTE | 2023-07-14 10:33 | OT.INIE ---
Occupational Therapy Notes Inpatient Occupational Therapy Evaluation Date: 07/15/23 Referring Doctor:Edin Pollard MD OT Orders: Urgent Precautions: Fall, standard PATIENT PROFILE/ADMITTING DIAGNOSIS: Pt is a 73 year old male admitted to Med Surg for a dx of (R) hemiparesis, stroke and TIA. He notes that he was walking to get his mail when his (R) LE went completely done. Past Medical History: All Active Problems (Updated 07/12/23 @ 19:11 by Giselle Haile APRN) On deep vein thrombosis (DVT) prophylaxis (Acute) Discharge planning issues (Acute) Brain TIA (Acute) Medical History ganglion 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 Hyperlipidemia Degenerative joint disease of hand rightHX OF TUBULAR ADENOMA Surgical History Tonsillectomy Rotator Cuff Repair LEFT Colonoscopy - IV Sedation (10/07/16) Colonoscopy - IV Sedation (02/26/10) Appendectomy Social History/Home Situation: Pt is a 73 year old male who lives in a private home with his . He notes that he is (I) with his ADL/IADL routines and at baseline does not need any (A). Equipment owned/DME: None prior SUBJECTIVE: Pt was sitting in bed. He notes that his hand writing is not his baseline. He states that he feels like he has decreased control but that he is improving. OBJECTIVE: General Observation: Pleasant, IV in (L) UE Mental Status: A&Ox4 ROM: RUE AROM WFL L UE AROM WFL STRENGTH: RUE 4/5 throughout LUE 4/5 throughout FUNCTIONAL MOBILITY/ADLS: Transfers (S) Therapeutic Exercise- OT educated and trained pt in HEP for fine motor control and writing mechanics which he is receptive too. We discuss follow up in the outpatient clinic if he is interested in this in the future. BALANCE: Static sitting Normal Dynamic Sitting Normal SPECIAL TESTS: Daily Activity Limitations Standardized Measure [facility] AM -PAC ?6 clicks? Daily Activity Inpatient Short Form: Raw score: 23 Standardized score: 51.12 CMS score: 15.86% INFORMED CONSENT/EDUCATION: Pt instructed in purpose of OT Consult and plan of care. ASSESSMENT: Patient is a 73-year-old male referred to occupational therapy services with diagnosis of (R) hemiparesis, Stroke, brain TIA. Patient presents with clinical signs and symptoms consistent with dx, as demonstrated by the following impairment level findings/ functional limitations: Impairments in ADL/IADL and leisure activities, decreased gross and fine motor control of (R) UE. AMPAC score 23 Patient is assessed as a Moderate 17668 complexity based on the following: History: see above Examination: see functional limitations as noted above Presentation: evolving Decision Making: AMPAC score 23 GOALS N/A PLAN OF CARE/TREATMENT PLAN: Seen for OT consult only. DISCHARGE RECOMMENDATIONS BAsed on pts current level of function, OT recommends that pt discharge home when medically cleared per MD. TREATMENT TIME/MINUTES/CODES 12750,20 minutes [facility] [place], [place]
--- NOTE | 2023-07-14 12:19 | DSE_ITS ---
Date of service: 07/14/23 Time of Service: 12:19 DS: Diagnosis Discharge Diagnosis (1) Brain TIA: Status: Acute Discharge Plan Disposition Patient Disposition: Home Condition: Improving Discharge Details Reason For Visit: TIA Admit Date/Time: 07/12/23 11:13 Admit Provider: Armando Ramon Attending Provider: Armando Ramon Primary Care Provider: Katarina Angelo V Hospital Course Hospital Course: This is a 73-year-old male patient with no significant past medical history, who presented to the emergency department with right hemiparesis. His symptoms resolved. Consultation with [facility] neurology with recommendations for Plavix load statin baby aspirin and CVA workup at this facility would be appropriate. He remained monitored on telemetry and remained in a normal sinus rhythm. He was seen by physical therapy and Occupational Therapy. We were able to complete echocardiogram and MRI of the brain which did confirm acute ischemic infarct . Neurology consult completed with Dr. Smith who will follow outpatient. He is stable for discharge to home she will place orders for outpatient cardiac event recorder repeat CTA of the head and neck and PT OT. Prescriptions have been sent for aspirin atorvastatin and clopidogrel (30 day supply). He will follow-up outpatient with her office. Hemodynamically he has been stable and is discharged to home with no new services at this time outpatient workup and further testing to be ordered by Dr. Smith Discharge discussed with Dr. Brownlee Home Meds and New Rx's Prescriptions: New aspirin 81 mg Tablet,Delayed Release (Dr/Ec) 81 mg PO DAILY Qty: 30 0RF clopidogrel 75 mg Tablet 75 mg PO DAILY Qty: 30 0RF atorvastatin 40 mg tablet 40 mg PO QHS Qty: 30 0RF Continued bisacodyl 5 MG tablet,delayed release (DR/EC) 5 mg PO DIRECTED polyethylene glycol 3350 527 GM powder 527 gm PO DIRECTED vitamin C25-hogps acid PO multivitamin .ROUTE Discharge Instructions Instructions: Ischemic Stroke (DC) Additional Instructions: Dr. Smith will order: outpatient cardiac event recorder, repeat CTA of the head and neck and PT/OT Return for new or worsening symptoms Stand Alone Forms: Nursing Discharge Form [facility]: [facility] [Other[facility] ([facility] with a appointment ) Activity:: Activity as Tolerated Equipment/Supplies:: No Equipment Needed Diet:: As Tolerated Discharge Orders Discharge Orders: Discharge Order (Routine); Ordered 07/14/23 Ordered By: Shabnam Dueñas Discharge Data Discharge Date/Time-TO BE ENTERED AT DEPARTURE: 07/14/23 17:18 DS: Summary Time Spent with Patient providing and/or coordinating discharge services: Greater than 30 minutes Status at Discharge Functional status at discharge: independent ambulation Overall status at discharge: patient is progressing back to baseline Mental Status: mental status grossly normal Speech and Movement: speech and movement normal Mood: congruent mood Affect: normal affect Exam Narrative Exam Narrative: Well-appearing male of stated age in no acute distress Head is atraumatic normocephalic eyes normal alignment EOMs intact no nystagmus facial symmetry with no facial droop noted Neuro awake alert oriented x 4 cranial nerves II through XII grossly intact able to perform [id number] bilaterally equal strength bilaterally 5 out of 5 Cardiovascular regular rate and rhythm Respiratory respirations even and unlabored breath sounds clear bilaterally Abdomen is soft nontender with positive bowel sounds Extremities are without edema moves all extremities strength 5 out of 5 Skin with no rashes or lesions Psychiatric normal mood and affect Psych Mental Status: mental status grossly normal Speech and Movement: speech and movement normal Mood: congruent mood Affect: normal affect DS: Data Vitals/I&O Vitals and I&O: Vital Signs Temperature 36.5 C 07/14/23 08:19 Temperature Source Tympanic 07/14/23 08:19 Pulse 66 07/14/23 08:19 Pulse Rhythm Regular 07/14/23 09:59 Pulse 67 07/12/23 12:20 Respiratory Rate 16 07/14/23 08:19 Respiratory Effort Normal 07/14/23 09:59 Respiratory Depth Normal 07/14/23 09:59 Respiratory Pattern Normal 07/14/23 09:59 Blood Pressure 163/83 H 07/14/23 08:19 Blood Pressure Mean 107 07/12/23 12:16 Blood Pressure Position Supine 07/12/23 06:49 Pulse Oximetry 95 07/14/23 08:19 Oxygen Delivery Method Room Air 07/14/23 08:19 Oxygen Flow Rate 0 07/14/23 08:19 Pain Level 0 07/14/23 08:19 Comment BP called over radio/ RN informed 07/13/23 11:02 Intake & Output 07/13/23 07/14/23 07/14/23 23:59 11:59 23:59 Intake Total 460 / 460 Balance 460 / 460 Intake: Oral 460 / 460 Other: Urine Color Yellow Urine Appearance Clear Clear Comment pT stated he was up to void at this time Voiding Methods Toilet Imaging MRI - head: Radiologist's impression: Exam(s) MR BRAIN WO EXAM: MR BRAIN WO CLINICAL HISTORY: TIA TECHNIQUE: Multiplanar multisequence MRI of the brain was performed. COMPARISON: CT CT BRAIN NECK CTA from 07/12/2023 FINDINGS: VENTRICLES AND EXTRA AXIAL SPACES: Normal in size and morphology for the patient's age. MIDLINE SHIFT: None. CEREBRAL PARENCHYMA: There is restricted diffusion seen in the region of the posterior aspect of the left lentiform nucleus, the posterior limb of the internal capsule and the left patiño radiata. There may also be a small focus of restricted diffusion in the high left parietal lobe. No space-occupying lesion identified. There are multiple foci of increased signal on the FLAIR and T2 weighted images consistent with small vessel ischemic disease. HEMORRHAGE: None. BRAINSTEM/CEREBELLUM: Normal. CALVARIUM: Normal. VISUALIZED PARANASAL SINUSES/MASTOIDS:Clear. [place]: Normal flow void. PITUITARY GLAND: Unremarkable. OTHER FINDINGS: None. IMPRESSION: 1. Acute infarct involving portions of the left lentiform nucleus, the posterior limb of the internal capsule on the left and the left patiño radiata. 2. Multiple foci of increased signal in the white matter consistent with chronic microvascular ischemic disease. Lab and Radiology Reports: Laboratory Results WBC 4.07 10^3/uL (4.4-10.8) L 07/13/23 06:16 RBC 4.47 10^6/uL (4.36-5.78) 07/13/23 06:16 Hgb 13.7 g/dL (13.5-17.5) 07/13/23 06:16 Hct 39.5 % (40.0-50.0) L 07/13/23 06:16 MCV 88 fL (80-95) 07/13/23 06:16 MCH 30.6 pg (27.0-33.0) 07/13/23 06:16 MCHC 34.7 % (32.0-36.0) 07/13/23 06:16 RDW 13.2 % (11.8-14.1) 07/13/23 06:16 Plt Count 161 10^3/uL (130-400) 07/13/23 06:16 MPV 9.3 fL (8.0-11.0) 07/13/23 06:16 Immature Gran % 0.2 07/13/23 06:16 Neutrophils % 59.2 07/13/23 06:16 Lymphocytes % 25.6 07/13/23 06:16 Monocytes % 12.3 07/13/23 06:16 Eosinophils % 2.0 07/13/23 06:16 Basophils % 0.7 07/13/23 06:16 Nucleated RBC % 0.0 % (0.0-0.3) 07/13/23 06:16 Absolute Neutrophils 2.41 10^3/uL (1.2-6.7) 07/13/23 06:16 Absolute Lymphocytes 1.04 10^3/uL (1.2-3.4) L 07/13/23 06:16 Absolute Monocytes 0.50 10^3/uL (0.1-0.8) 07/13/23 06:16 Absolute Eosinophils 0.08 10^3/uL (0.0-0.7) 07/13/23 06:16 Absolute Basophils 0.03 10^3/uL (0.0-0.2) 07/13/23 06:16 PT 10.1 sec (9.1-11.1) 07/12/23 06:59 INR 1.0 (0.9-1.1) 07/12/23 06:59 Sodium 133 mmol/L (136-145) L 07/13/23 06:16 Potassium 3.3 mmol/L (3.5-5.1) L 07/13/23 06:16 Chloride 105 mmol/L (98-107) 07/13/23 06:16 Carbon Dioxide 26.5 mmol/L (21.0-32.0) 07/13/23 06:16 Anion Gap 1.5 mmol/L (3-11) L 07/13/23 06:16 BUN 11 mg/dL (7-18) 07/13/23 06:16 Creatinine 0.9 mg/dL (0.70-1.30) 07/13/23 06:16 Est GFR (CKD-EPI 2020) 89.07 (mL/min/1.73m2) 07/13/23 06:16 Glucose 105 mg/dL (74-106) 07/13/23 06:16 Hemoglobin A1c 5.5 % (<5.7) 07/13/23 06:16 Calcium 8.5 mg/dL (8.5-10.1) 07/13/23 06:16 Magnesium 1.9 mg/dL (1.8-2.4) 07/13/23 06:16 Total Bilirubin 0.5 mg/dL (0.2-1.0) 07/12/23 06:59 AST 18 U/L (15-37) 07/12/23 06:59 ALT 18 U/L (16-63) 07/12/23 06:59 Alkaline Phosphatase 65 U/L (46-116) 07/12/23 06:59 Troponin I Cancelled 07/12/23 10:08 Total Protein 7.3 g/dL (6.4-8.2) 07/12/23 06:59 Albumin 3.5 g/dL (3.4-5.0) 07/12/23 06:59 Triglycerides 82 mg/dL (<150) 07/13/23 06:16 Total Cholesterol 161 mg/dL (<200) 07/13/23 06:16 LDL Cholesterol, Calc 106 mg/dL (<100) H 07/13/23 06:16 HDL Cholesterol 39 mg/dL (40-60) L 07/13/23 06:16 Additional Comments Additional comments: EXAM: Comprehensive 2D, Doppler, and color-flow Echocardiogram Patient Location: In-Patient Room/Bed: [facility] [employer] Qualified: Niecy De Leon RDCS (AE) Indications: TIA Echo Enhancing Agent Indication: Rule out Shunt Agent(s) / Amount(s) Used: Agitated Saline 40.0 cc Comments: Contrast study was performed with 2 IV injections of 10ccs of agitated normal saline, at rest and with cough. Other Information Study Quality: Fair. Technically limited study due to body habitus, patient unable to stay LLD . Conclusion Normal left ventricular wall thickness and chamber size. Ejection fraction is 50 to 55%. There are no segmental wall motion abnormalities. There is stage I diastolic dysfunction which is normal for age Normal right ventricular size and systolic function Both atria are normal in size No structural or hemodynamically significant valvular disease No intracardiac shunting was identified with injection of agitated saline Mildly dilated ascending aorta Wall motion Left Ventricle The left ventricle is normal size. The left ventricular systolic function is normal. The left ventricular ejection fraction is within the normal range. There is normal left ventricular wall thickness. There is normal LV segmental wall motion. There is no ventricular septal defect visualized. LVEF is 50-55% Right Ventricle Right ventricle is grossly normal in size. Right ventricular systolic function could not be assessed. Atria The left atrium size is normal. The right atrium size is normal. The interatrial septum is intact with no evidence for an atrial septal defect. Aortic Valve The aortic valve is normal in structure. Aortic valve is trileaflet. There is no aortic valvular stenosis. No aortic regurgitation is present. Mitral Valve The mitral valve is normal in structure. No evidence of mitral valve stenosis. Trace mitral regurgitation. Tricuspid Valve The tricuspid valve is normal in structure. There is no tricuspid valve stenosis. Trace tricuspid regurgitation. Unable to assess PA pressure. Pulmonic Valve The pulmonary valve is normal in structure. There is no pulmonic valvular stenosis. There is no pulmonic valvular regurgitation. Great Vessels The aortic root is normal in size. The ascending aorta is mildly dilated. Aortic arch is normal in caliber. IVC is normal in size and collapses >50% with inspiration. Pericardium There is no pericardial effusion. PFSH All Active Problems (Updated 07/14/23 @ 19:16 by Jael Smith MD) Right hemiparesis (Acute) Stroke (Chronic) On deep vein thrombosis (DVT) prophylaxis (Acute) Discharge planning issues (Acute) Brain TIA (Acute) Medical History ganglion 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 Hyperlipidemia Degenerative joint disease of hand right HX OF TUBULAR ADENOMA Surgical History Tonsillectomy Rotator Cuff Repair LEFT Colonoscopy - IV Sedation (10/07/16) Colonoscopy - IV Sedation (02/26/10) Appendectomy Family History Mother Heart disease Father Heart disease Brother , METASTATIC [place] Personal history of malignant neoplasm RECTAL Uncle Personal history of malignant neoplasm COLON Uncle Personal history of malignant neoplasm COLON Social History Smoking/Tobacco Use Status: Current-Occasional Tobacco Type: cigars Smoking risk assessment performed?: Yes Drug use: Never Substance use type: does not use Housing: house Time Spent with Patient Time Spent with Patient: 45-69 minutes Time was spent: preparing to see the patient(eg.review tests), ordering medications,tests, procedures, referring, communicating with other health care trainer, indepentently interpreting results and counseling the patient
--- NOTE | 2023-07-14 14:43 | W.ED.PROC ---
Date of service: 07/12/23 Time of Service: 06:55 Medical Decision Making Brief screening note Notified by clinical account specialist of concern for potential stroke. On my assessment patient reports waking at 0500, shortly thereafter while ambulating to the mailbox to get the paper his right leg gave out and he fell. Continues with difficulty using right leg. drove him to the ED. On my exam RLE weakness though does have good antigravity, NIHSS 1 for RLE drift. Concern for CVA; given likely wake-up symptoms and low NIHSS score would not give lytics. CT stroke protocol ordered, Labs drawn and patient taken to CT, care transferred to am physician.
--- NOTE | 2023-07-14 16:07 | NCONE_ITS ---
Date of service: 07/14/23 Time of Service: 16:07 Assessment and Plan Assessment and plan (1) Stroke: Status: Chronic (2) Right hemiparesis: Status: Acute Assessment and plan: Mr. Duncan is admitted with a left hemisphere stroke manifested by R hand and leg weakness and R face and arm numbness, now with only residual right hand clumsiness. Etiology of his stroke remains unknown at this time, but likely thrombotic vs thrombo-embolic. Work-up: -repeat CTA head/neck w/ to look at intra- and extracranial vasculature given poor quality initial imaging; unfortunately the CT machine is down today so will get this done as an outpatient; I will order -30 day cardiac event monitoring (outpatient study so [facility]; I will order) Medications: -aspirin 81mg daily for secondary stroke prevention -clopidogrel 75mg daily for secondary stroke prevention x 30 days -atrovastatin 40mg daily for secondary stroke prevention for goal LDL <70 (he notes a FHx of statin resistance/ineffectiveness) Other: -long-term goal BP <140/90 -Physical therapy for leg weakness, gait training - I will order pending [facility] approval -Occupation therapy for upper extremity weakness, activities of daily living - I will order pending [facility] approval He should follow-up with neurology in 4-6 weeks, either here or [facility]. History of Present Illness History of Present Illness Chief Complaint: stroke Narrative: Handedness: right. Mr. Duncan is a 73 year-old with hyperlipidemia, prior prostate cancer, hearing loss and some type of R eye condition - possibly glaucoma per - requiring eye drops. Mr. Osorio is accompanied by his and grandson who are at bedside. Mr. Duncan presented to [facility] ER on 07/12/23 am after waking up with R hand clumsiness, R leg weakness, and R arm and face numbness. He was not a candidate for tPA as he was outside of the time window. Initial BP was 188/107. He was started on DAPT and statin (was on none of these prior) and underwent the below work-up. He notes resolution of all of his symptoms except residual clumsiness in the right hand. He does not smoke. He does not have palpitations. No recent change of events, re: concerning for dissection. Work-up: -CTH (07/12/23): No acute findings. Minimal bilateral basal ganglia calcifications. I reviewed these images personally and this is my personal interpretation. -CTA head/neck (07/12/23): poorly timed contrast to my view particularly in the neck. Complicate L ICA plaque and cannot rule out dissection. Rads notes bilateral distal vertebral artery V4 50-69% stenosis. I reviewed these images personally and this is my personal interpretation. -TTE (07/14/23): EF 50-55%. No wall motion abnormalities. LA normal. Stage I diastolic changes. No PFO. -MRI brain w/o (07/14/23): acute ischemia in the L posterior limb of the internal capsule and the patiño radiatia/PV. Mild chronic vascular changes. I reviewed these images personally and this is my personal interpretation. -LDL 106 -A1c 5.5 Review of Systems All systems reviewed & are unremarkable except as noted in HPI and below PFSH All Active Problems (Updated 07/14/23 @ 19:16 by Jael Smith MD) Right hemiparesis (Acute) Stroke (Chronic) On deep vein thrombosis (DVT) prophylaxis (Acute) Discharge planning issues (Acute) Brain TIA (Acute) Medical History ganglion 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 Hyperlipidemia Degenerative joint disease of hand right HX OF TUBULAR ADENOMA Surgical History Tonsillectomy Rotator Cuff Repair LEFT Colonoscopy - IV Sedation (10/07/16) Colonoscopy - IV Sedation (02/26/10) Appendectomy Family History Mother Heart disease Father Heart disease Brother , METASTATIC [place] Personal history of malignant neoplasm RECTAL Uncle Personal history of malignant neoplasm COLON Uncle Personal history of malignant neoplasm COLON Social History Smoking/Tobacco Use Status: Current-Occasional Tobacco Type: cigars Smoking risk assessment performed?: Yes Drug use: Never Substance use type: does not use Housing: house Visit Medication and Allergies Active Medications Generic Name Dose Route Start Last Admin Trade Name Freq PRN Reason Stop Dose Admin Acetaminophen 0 mg 07/12/23 12:57 Acetaminophen 325 Mg Tab PO Q4H PRN PRN Al Hydrox/Mg Hydrox/Simethicone 30 ml 07/12/23 12:57 Mylanta Suspension 30 Ml Cup PO Q2H PRN PRN Aspirin 81 mg 07/13/23 08:30 07/14/23 07:58 Aspirin E.C. 81 Mg Tabec PO 81 mg DAILY JUAN DAVID Administration Atorvastatin Calcium 80 mg 07/12/23 20:00 07/13/23 21:14 Atorvastatin 40 Mg Tab PO 80 mg QPM JUAN DAVID Administration Bisacodyl 5 mg 07/12/23 12:57 Bisacodyl 5 Mg Tabec PO DAILY PRN PRN Clopidogrel Bisulfate 75 mg 07/13/23 08:30 07/14/23 07:58 Clopidogrel 75 Mg Tab PO 75 mg DAILY JUAN DAVID Administration Enoxaparin Sodium 40 mg 07/12/23 16:00 07/13/23 16:21 Enoxaparin 40 Mg/0.4 Ml Syr SC 40 mg Q24H JUAN DAVID Administration IV Miscellaneous Supplies 1 each 07/12/23 12:57 Iv Access IV DIRECTED JUAN DAVID Multivitamins 1 tab 07/13/23 08:30 07/14/23 07:58 Multivitamin Tab PO 1 tab DAILY JUAN DAVID Administration Polyethylene Glycol 17 gm 07/12/23 13:03 Polyethylene Glycol 3350 17 Gm Packet PO DAILY PRN PRN Sodium Chloride 0 ml 07/12/23 12:57 Normal Saline Flush 10 Ml Syr IVP PRN PRN Allergies No Known Allergies Allergy (Unverified 07/12/23 10:07) Exam Narrative Exam Narrative: Physical Exam: Gen: Patient of apparent stated age, NAD Head and face: no facial or cranial abnormalities Neck: Supple, no meningismus, no occipital tenderness CV: + S1, S2, RRR, no murmur Resp: CTA B/L Abd: soft, nontender, nondistended Ext: No edema. No clubbing or cyanosis. No bony deformity. Neuro Exam: Language: fluency, naming, repetition, and comprehension intact; Mental Status: AAOx3, current events intact, fund of knowledge intact; Speech: mild dysarthria (chronic per family) Cranial nerves: Funduscopy: not performed CN II: visual hope intact CN III, IV, : extraocular movements intact, no nystagmus, pupils symmetric and reactive to light CN V: face sensation intact to LT and PP CN VII: R nasolabial fold flattening (chronic per family) CN VIII: hearing intact bilaterally CN IX, X: palate rises symmetrically CN XI: trapezius/SCM 5/5 bilaterally CN XII: protrudes tongue symmetrically Sensory: intact to LT, PP, and joint position in all extremities; reduced vibration in the toes bilaterally; Motor: bulk and tone intact. Fine motor movements reduced on the R. No pronator drift. Strength 5/5 throughout including the deltoids, biceps, triceps, wrist extensors, hip flexors, knee flexors, knee extensors, ankle flexors, and ankle extensors. Reflexes: 2+ at the biceps, triceps, brachioradialis, patella, and achilles tendons bilaterally; Coordination: FTN and HTS intact bilaterally Gait: normal gait; Results Last Vital Signs Temp 97.7 F 07/14/23 08:19 Pulse 66 07/14/23 08:19 Resp 16 07/14/23 08:19 BP 163/83 H 07/14/23 08:19 Pulse Ox 95 07/14/23 08:19 Labs 07/13/23 06:16 07/13/23 06:16
--- NOTE | 2023-07-14 18:29 | PDOC.CMDIS ---
Date of service: 07/14/23 Time of Service: 18:29 LACE Index Scoring Tool Questions: Length of Stay (in days): 2 Was the patient admitted via the E.D.?: Yes E.D. Visits: 0 Answers: Total Score: 5 Risk of Readmission: Low Risk Care Management Discharge Plan Reason for Hospitalization: TIA Discharge Plan: Feng will return home with no new services. His and grandson were present for discharge and will drive him home via private vehicle. He will follow up with his PCP and discharge plan of care. He is happy to be going home. Patient/Family Education Needs: Review discharge instructions and limitations, discussion of self care needs including ask me three.
== END 2023-07-14 17:18 | disposition home or self-care (01) ==
LOC: ER 12:03 → MS 12:50
PROVIDERS: Nurse Practitioner Acute Care; Admitting Provider Internal Medicine; Emergency Provider Emergency Medicine; PCP Internal Medicine; Visit Provider Internal Medicine
DX: G45.9 Transient cerebral ischemic attack, unspecified (principal); W19.XXXA Unspecified fall, initial encounter; I67.89 Other cerebrovascular disease; E78.5 Hyperlipidemia, unspecified; I67.2 Cerebral atherosclerosis; Z85.46 Personal history of malignant neoplasm of prostate; F17.290 Nicotine dependence, other tobacco product, uncomplicated; G81.91 Hemiplegia, unspecified affecting right dominant side
CPT/HCPCS: 00123; 36415; 36416; 70496; 70498; 80048; 80053; 80061; 82962; 93005; 93306; 96360; 96361; 96372; 97161; 97165; 99223; 99285; J1650; 70551; 71046; 73502; 83036; 83735; 84484; 85025; 85610; 93010; 99232; 99239; G0378; J3490

== ENCOUNTER → 2023-07-14 08:22 | Outpatient (BNVA) | payer MEDICARE, SELFPAY | PROVIDERS: PCP Family Medicine; Referring Provider Family Medicine; Visit Provider Psychiatry & Neurology Neurology ==

== ENCOUNTER 2023-07-15 10:09 | Outpatient (CLI) | payer MEDICARE, SELFPAY | END 2023-07-15 10:10 | disposition home or self-care (01) | PROVIDERS: PCP Family Medicine; Visit Provider Psychiatry & Neurology Neurology | DX: I48.0 Paroxysmal atrial fibrillation (principal) | CPT/HCPCS: 93270 ==

== ENCOUNTER → 2023-07-18 01:04 | Outpatient (CLI) | payer MEDICARE, SELFPAY ==
--- NOTE | 2023-07-18 06:45 | DI.CT_ITS ---
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 TECHNIQUE: Imaging Protocol: Axial CT angiography was performed with multi-slice acquisition and mu lti-planar and/or 3D reconstructions. CONTRAST MATERIAL: Intravenous: Omnipaque contrast volume:85 mL COMPARISON: CT CT BRAIN NECK CTA from 07/12/2023 MR MR BRAIN WO from 07/14/2023 FINDINGS: The examination is limited due to patient motion artifact. CT Head W/O and W: Ventricles and Extra axial spaces: Normal in size and morphology for the patient's age. Hemorrhage: None. Cerebral parenchyma: The infarcts involving the left patiño radiata and left lentiform nucleus have o f all vein are more pronounced on the current examination. There are areas of decreased attenuation in the white matter consistent with small vessel ischemic disease. Midline shift: None. Brainstem/Cerebellum: Normal. Calvarium: Normal. Visualized Paranasal sinuses/Mastoids: Clear. Soft Tissues: Unremarkable. Enhancement: Unremarkable. CTA Neck W: Except for a short segment of the proximal vertebral arteries bilaterally and proximal le ft internal carotid artery, which are obscured by adjacent artifact, there is good opacification and visualization of the carotid and vertebral arteries on the CT angiography of the neck. Common Carotid: Right: No dissection, occlusion or significant stenosis. Left: No dissection, occlusion or significant stenosis. External Carotid: Right: No occlusion or significant stenosis. Left: No occlusion or significant stenosis. Internal Carotid: Right: No dissection, occlusion or significant stenosis. There is mild calcification at the origin o f the right internal carotid artery with less than 50 percent stenosis. Left: No dissection, occlusion or significant stenosis. There is calcification at the origin of the left internal carotid artery with less than 50 percent stenosis. Vertebral Artery: Right: No dissection or occlusion. There is atherosclerosis seen in the distal right vertebral megan ry. There is approximately 50 percent narrowing of the vessel. Left: No dissection, occlusion or significant stenosis. There is atherosclerosis in the distal left vertebral artery with less than 50 percent stenosis. Lung Apices: Normal. Bones: Within normal limits for the patient's age. Soft Tissues: Normal. Thyroid gland: Unremarkable. CTA Brain W: Internal Carotid Arteries: There is atherosclerosis present bilaterally. There is less than 50 perce nt stenosis. No evidence of aneurysm, occlusion or significant stenosis. Anterior Cerebral Arteries: Right: No aneurysm, occlusion or significant stenosis. The right A1 segment is absent which is a nor mal variant. Left: No aneurysm, occlusion or significant stenosis. Middle Cerebral Arteries: Right: No aneurysm, occlusion or significant stenosis. Left: No aneurysm, occlusion or significant stenosis. Posterior Cerebral Arteries: Right: No aneurysm, occlusion or significant stenosis. Left: No aneurysm, occlusion or significant stenosis. Vertebral Arteries: Right: No aneurysm, occlusion or significant stenosis. Left: No aneurysm, occlusion or significant stenosis. Basilar Artery: No aneurysm, occlusion or significant stenosis. IMPRESSION: 1. No large vessel occlusion or significant stenosis on the CT angiography of the head. 2. 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 3. Atherosclerosis in the distal right vertebral artery with approximately 50 percent narrowing. Oth erwise, no evidence of aneurysm, dissection, occlusion or significant stenosis within the limits of t he examination. RADIATION DOSE DELIVERED: Total DLP DATA REPOSITORY: All CT scans at this facility are submitted to the National Radiology Data Registry (NRDR) Dose Index Registry (DIR) with the [employer] ([employer]). RADIATION OPTIMIZATION: All CT scans at this facility use at least one of these dose optimization te chniques: automated exposure control; mA and/or kV adjustment per patient size (includes targeted exa ms where dose is matched to clinical indication); or iterative reconstruction.
[2023-07-18] MEDS: Normal Saline - Diluent 50 ML VIAL IJ (08:13)
[2023-07-18] MEDS: Omnipaque 350 MG/ML 500 ML BTL-Imaging package IJ (08:13)
[2023-07-18] MEDS: Normal Saline Flush 10 ML SYR IVP (08:14)
== END ==
PROVIDERS: PCP Family Medicine; Visit Provider Psychiatry & Neurology Neurology
DX: I65.01 Occlusion and stenosis of right vertebral artery (principal)
CPT/HCPCS: 70496; 70498

== ENCOUNTER 2024-05-20 14:09 | Outpatient (CLI) | payer OTHER, SELFPAY ==
--- NOTE | 2024-05-20 16:09 | DI.RAD_ITS ---
Exam(s) XR FOREARM LT XR WRIST LT COMPLETE EXAM: XR WRIST LT COMPLETE and XR forearm LT CLINICAL HISTORY: PAIN IN HAND, M79.642 [id number]. TECHNIQUE: 2D digital imaging was performed of the left forearm and wrist. Five images were obtaine d. PA, oblique and lateral views were obtained. COMPARISON: No priors for comparison. FINDINGS: BONES: No acute fracture is present. No bony destructive lesion is seen. There is an enthesophyte at the olecranon. JOINTS: The carpal bones are normally aligned. There are mild degenerative changes seen at the 1st CM C joint. SOFT TISSUE: Normal. IMPRESSION: Mild degenerative changes seen at the 1st CMC joint. DATA REPOSITORY: RADIATION DOSE DELIVERED:
--- NOTE | 2024-05-20 16:10 | DI.RAD_ITS ---
Exam(s) XR FOREARM LT XR WRIST LT COMPLETE EXAM: XR WRIST LT COMPLETE and XR forearm LT CLINICAL HISTORY: PAIN IN HAND, M79.642 [id number]. TECHNIQUE: 2D digital imaging was performed of the left forearm and wrist. Five images were obtaine d. PA, oblique and lateral views were obtained. COMPARISON: No priors for comparison. FINDINGS: BONES: No acute fracture is present. No bony destructive lesion is seen. There is an enthesophyte at the olecranon. JOINTS: The carpal bones are normally aligned. There are mild degenerative changes seen at the 1st CM C joint. SOFT TISSUE: Normal. IMPRESSION: Mild degenerative changes seen at the 1st CMC joint. DATA REPOSITORY: RADIATION DOSE DELIVERED:
== END 2024-05-20 14:29 ==
PROVIDERS: PCP Internal Medicine; Visit Provider Internal Medicine
DX: M79.642 Pain in left hand (principal)
CPT/HCPCS: 73090; 73110